=== PATIENT | female | born 1985 | race Asian ===

== ENCOUNTER 2017-07-21 14:19 | Emergency (ER) | payer BC ==
[~2017-07-21] VITALS: Ht 167.6 cm; Wt 64.5 kg
[2017-07-21 14:36] VITALS: BP 114/59; PULSE 84; RESP 14; TEMP 98.9; O2SAT 99
[2017-07-21 15:33] LABS: AUTOMATED NEUTROPHIL # 5.1 TH/MM3 (1.8-7.7); BASOPHIL # 0.1 TH/MM3 (0-0.2); BASOPHIL % 0.7 % (0.0-2.0); EOSINOPHIL # 0.1 TH/MM3 (0-0.4); HEMATOCRIT 37.2 % (35.0-46.0); HEMOGLOBIN 12.7 GM/DL (11.6-15.3); LYMPH % 26.9 % (9.0-44.0); LYMPHOCYTE # 2.1 TH/MM3 (1.0-4.8); MEAN CELL VOLUME 88.4 FL (80.0-100.0); MEAN CORPUSCULAR HEMOGLOBIN 30.3 PG (27.0-34.0); MEAN CORPUSCULAR HGB CONC 34.2 % (32.0-36.0); MEAN PLATELET VOLUME 8.1 FL (7.0-11.0); MONO % 7.3 % (0.0-8.0); MONOCYTE # 0.6 TH/MM3 (0-0.9); NEUT % 64.1 % (16.0-70.0); PLATELET COUNT 232 TH/MM3 (150-450); RED BLOOD COUNT 4.21 MIL/MM3 (4.00-5.30); RED CELL DISTRIBUTION WIDTH 13.5 % (11.6-17.2)
[2017-07-21 15:42] LABS: BICARBONATE 23.7 MEQ/L (21.0-32.0); CALCIUM 9.3 MG/DL (8.5-10.1); CREATININE 0.47 MG/DL (0.50-1.00)
[2017-07-21 15:58] LABS: BILIRUBIN, URINE NEG (NEG); BLOOD, URINE NEG (NEG); GLUCOSE,URINE NEG (NEG); KETONE, URINE 10 mg/dL (NEG); NITRITE,URINE NEG (NEG); PH, URINE 7.5 (5.0-8.5); SQUAMOUS EPITHELIAL CELL URINE 2 /hpf (0-5); URINE COLOR LIGHT-YELLOW (YELLW/STRAW); URINE LEUKOCYTE ESTERASE SMALL (NEG)
[2017-07-21 16:47] VITALS: BP 100/58; PULSE 73; RESP 18; O2SAT 100
[2017-07-21] MEDS ORDERED: PREN29TA PO (16:47)
--- NOTE | 2017-07-21 17:02 | PD ---
HPI Chief Complaint: Cardiac Complaint Time Seen by Provider: 16:41 Travel History International Travel<30 days: No Contact w/Intl Traveler<30days: No Traveled to known affect area: No History of Present Illness HPI 32-year-old female , approximately 6 weeks by dates presents to the ED for evaluation of 3 day history of chest pain, shortness of breath, dyspnea on exertion and palpitations. Gradual onset. Patient can identify no alleviating or exacerbating factors. She denies diaphoresis, nausea, vomiting, abdominal pain, vaginal bleeding, leg pain. Denies recent period of immobilization. She is a lifelong nonsmoker. No history of blood clots. She states that she called her DISASSEMBLER and was instructed to come to the ED today. [facility] Past Medical History Medical History: Denies Significant Hx Tetanus Vaccination: > 5 Years Influenza Vaccination: No ?: LMP: 06/10/2017 Past Surgical History Other Surgery: Yes (LASIK PROCEDURE ON EYES) Social History Alcohol Use: No Tobacco Use: No Substance Use: No Allergies-Medications (Allergen,Severity, Reaction): Coded Allergies: Penicillins (Verified Allergy, Unknown, 07/21/17) Reported Meds & Prescriptions Reported Meds & Active Scripts Active Reported Plus Iron 29-1 mg ( Vit-Iron Carbonyl) 29 Mg Iron-1 Mg Tab 1 Tab PO DAILY Review of Systems Except as stated in HPI: all other systems reviewed are Neg Physical Exam Narrative GENERAL: Petite, anxious female in no acute distress. SKIN: Focused skin assessment warm/dry. HEAD: Normocephalic. EYES: No scleral icterus. No injection or drainage. NECK: Supple, trachea midline. No JVD or lymphadenopathy. CARDIOVASCULAR: Regular rate and rhythm without murmurs, gallops, or rubs. CHEST: Nontender throughout without deformity or crepitus. No retractions or use of accessory muscles. Tender to palpation at the 10 o'clock position of the right breast and the 2 o'clock position of the left breast. RESPIRATORY: Breath sounds clear and equal bilaterally. No accessory muscle use. GASTROINTESTINAL: Abdomen soft, non-tender, nondistended. Active bowel sounds. MUSCULOSKELETAL: No cyanosis, or edema. Homans sign negative bilaterally. BACK: Nontender without obvious deformity. No CVA tenderness. Data Data Last Documented VS Vital Signs Date Time Temp Pulse Resp B/P (MAP) Pulse Ox O2 Delivery O2 Flow Rate FiO2 07/21/17 18:49 76 18 102/59 (73) 98 Room Air 07/21/17 14:36 98.9 Orders Orders Complete Blood Count With Diff (07/21/17 14:38) Basic Metabolic Panel (Bmp) (07/21/17 14:38) Urinalysis - C+S If Indicated (07/21/17 14:38) Thyroid Stimulating Hormone (07/21/17 14:38) Electrocardiogram (07/21/17 ) Ed Urine Pregnancytest Poc (07/21/17 17:02) Arterial Blood Gas (Abg) (07/21/17 ) D-Dimer (07/21/17 17:15) ^ Insert Iv (07/21/17 18:36) Sodium Chlorid 0.9% 500 Ml Inj (Ns 500 M (07/21/17 18:45) Ed Discharge Order (07/21/17 19:27) Labs Laboratory Tests Test 07/21/17 14:52 07/21/17 17:20 07/21/17 18:45 White Blood Count 8.0 TH/MM3 Red Blood Count 4.21 MIL/MM3 Hemoglobin 12.7 GM/DL Hematocrit 37.2 % Mean Corpuscular Volume 88.4 FL Mean Corpuscular Hemoglobin 30.3 PG Mean Corpuscular Hemoglobin Concent 34.2 % Red Cell Distribution Width 13.5 % Platelet Count 232 TH/MM3 Mean Platelet Volume 8.1 FL Neutrophils (%) (Auto) 64.1 % Lymphocytes (%) (Auto) 26.9 % Monocytes (%) (Auto) 7.3 % Eosinophils (%) (Auto) 1.0 % Basophils (%) (Auto) 0.7 % Neutrophils # (Auto) 5.1 TH/MM3 Lymphocytes # (Auto) 2.1 TH/MM3 Monocytes # (Auto) 0.6 TH/MM3 Eosinophils # (Auto) 0.1 TH/MM3 Basophils # (Auto) 0.1 TH/MM3 CBC Comment DIFF FINAL Differential Comment Urine Color LIGHT-YELLOW Urine Turbidity CLEAR Urine pH 7.5 Urine Specific Nelson 1.008 Urine Protein NEG mg/dL Urine Glucose (UA) NEG mg/dL Urine Ketones 10 mg/dL Urine Occult Blood NEG Urine Nitrite NEG Urine Bilirubin NEG Urine Urobilinogen LESS THAN 2.0 MG/DL Urine Leukocyte Esterase SMALL Urine RBC 1 /hpf Urine WBC LESS THAN 1 /hpf Urine Squamous Epithelial Cells 2 /hpf Microscopic Urinalysis Comment CULT NOT INDICATED Blood Urea Nitrogen 8 MG/DL Creatinine 0.47 MG/DL Random Glucose 90 MG/DL Calcium Level 9.3 MG/DL Sodium Level 136 MEQ/L Potassium Level 3.6 MEQ/L Chloride Level 104 MEQ/L Carbon Dioxide Level 23.7 MEQ/L Anion Gap 8 MEQ/L Estimat Glomerular Filtration Rate 152 ML/MIN Thyroid Stimulating Hormone 3rd Gen 3.250 uIU/ML Blood Gas Puncture Site RT RADIAL Blood Gas Patient Temperature 98.6 Blood Gas HCO3 22 mmol/L Blood Gas Base Excess -1.0 mmol/L Blood Gas Oxygen Saturation 97 % Arterial Blood pH 7.45 Arterial Blood Partial Pressure CO2 32 mmHg Arterial Blood Partial Pressure O2 106 mmHG Arterial Blood Oxygen Content 16.3 Vol % Arterial Blood Carboxyhemoglobin 0.8 % Arterial Blood Methemoglobin 0.5 % Blood Gas Hemoglobin 11.8 G/DL Oxygen Delivery Device ROOM AIR Blood Gas Inspired Oxygen 21 % D-Dimer Quantitative (PE/DVT) 0.43 MG/L [facility] Medical Decision Making Medical Screen Exam Complete: Yes Emergency Medical Condition: Yes Differential Diagnosis Anxiety versus musculoskeletal pain versus PE versus other Narrative Course 32-year-old female , approximately 6 weeks by dates presents to the ED for evaluation of 3 day history of chest pain, shortness of breath, dyspnea on exertion and palpitations. Denies recent period of immobilization. She is a lifelong nonsmoker. No history of blood clots. She states that she called her DISASSEMBLER and was instructed to come to the ED today. Pulse 84, pulse ox 99% on room air on presentation. Physical exam reveals an anxious-appearing female in no acute distress. She does have some tenderness to palpation on the outer upper quadrant of bilateral breast but the exams otherwise unremarkable. EKG rate 75, sinus rhythm. TX interval 138, QRS 97, QTC 439 ms. Normal axis. No acute ST changes. Reviewed by Dr. Bauer. ABG: PH 7.45. PCO2 32.4. Bicarbonate 22.4. D-dimer: 0.43. UA: No bacteria. No culture indicated. 07/21/17 14:52 Calcium Level 9.3 Given the negative d-dimer, normal ABG I reassured her that this is not a PE. Could be breast changes related to early coupled with anxiety. Patient's instructed to return to normal, gentle activity as tolerated, follow- up with her DISASSEMBLER. She stable and discharged home. Diagnosis Primary Impression: Heart palpitations Additional Impression: Musculoskeletal chest pain Referrals: Catalog Librarian Patient Instructions: Chest Wall Pain (ED), General Instructions, Heart Palpitations (ED) Additional Instructions: Rest, hydrate. Resume normal, gentle activities as tolerated. Follow-up with your supervisor locomotive this week. Return to the ED for worsening symptoms or any urgent or emergent medical condition. Disposition: 01 DISCHARGE HOME Condition: Stable Pam Bridges Jul 21, 2017 17:02
[2017-07-21] MEDS ORDERED: SODIUM CHLORID 0.9% 500 ML INJ 500 ML IV ONE (18:45)
[2017-07-21 18:49] VITALS: BP 102/59; PULSE 76; RESP 18; O2SAT 98
--- NOTE | 2017-07-22 22:47 | EKG ---
Date Performed: 07/21/2017 Time Performed: 14:48:34 PTAGE: 32 years EKG: Sinus rhythm POSSIBLE RIGHT VENTRICULAR CONDUCTION DELAY NONSPECIFIC T-WAVE ABNORMALITY BORDERLINE ECG NO PREVIOUS TRACING DOCTOR: Dejah Currie Interpretating Date/Time 07/22/2017 22:46:11
== END 2017-07-21 19:52 | disposition home or self-care (01) ==
LOC: NEPC 14:19
DX: O26.891 Other specified pregnancy related conditions, first trimester (principal); R06.02 Shortness of breath; R00.2 Palpitations; Z3A.01 Less than 8 weeks gestation of pregnancy
CPT/HCPCS: 36600; 80048; 81001; 82805; 84443; 84703; 85025; 85379; 93005; 99284; J7040

== ENCOUNTER → 2017-09-10 | Outpatient (CLI) | payer BC ==
[~2017-09-10] MED LIST: PREN29TA PO
== END ==
LOC: HPND 11:23
PROVIDERS: ATTEND Obstetrics & Gynecology
DX: Z36.82 Encounter for antenatal screening for nuchal translucency (principal)
CPT/HCPCS: 36415; 76813

== ENCOUNTER → 2017-10-08 | Outpatient (CLI) | payer BC | LOC: HPND 12:10 | PROVIDERS: ATTEND Obstetrics & Gynecology | DX: O28.1 Abnormal biochemical finding on antenatal screening of mother (principal) | CPT/HCPCS: 76811 ==

== ENCOUNTER → 2017-11-14 | Outpatient (CLI) | payer BC | LOC: HPND 09:09 | PROVIDERS: ATTEND Obstetrics & Gynecology | DX: O35.8XX0 Maternal care for other (suspected) fetal abnormality and damage, not applicable or unspecified (principal); O43.192 Other malformation of placenta, second trimester | CPT/HCPCS: 76816 ==

== ENCOUNTER 2018-03-10 05:20 | Inpatient (IN) ==
--- NOTE | 2018-03-09 21:02 | MH ---
cc: Sacha Paris MD DATE OF ADMISSION: 03/10/2018 ADMITTING DIAGNOSIS: 39 weeks, small for gestational age. She is admitted today for primary for term , small for gestational age and patient's desire for delivery. PAST SURGICAL HISTORY: None. MEDICATIONS: Vitamins. ALLERGIES: PENICILLIN. TRANSFUSIONS: None. SOCIAL HISTORY: , professor [employer]. Alcohol, tobacco and drugs are none. PHYSICAL EXAMINATION: GENERAL: Well-nourished, well-developed, female. VITAL SIGNS: Stable. HEENT: Normal. CHEST: Clear. HEART: Regular rate. BREASTS: Symmetrical. ABDOMEN: Benign. DFW is 28 to 3000 grams. Cervix is closed. ASSESSMENT: As above. PLAN: She is now admitted for primary . While in the office, the risks and benefits and complications including infection, injury, bleeding. Awaiting labor, induction, explained and accepted. MD GIOVANY Weller/diego/ , 07:38 PM , 07:42 PM MTDD
[2018-03-10] MEDS ORDERED: Citric Acid/Sodium Citrate Liq 30 ML UDC PO SCH (06:30)
[2018-03-10 06:33] LABS: Baso # (Auto) 0.1 th/mm3 (0.0-0.2); Baso % (Auto) 0.6 % (0.0-2.0); Eos # (Auto) 0.1 th/mm3 (0.0-0.4); Hematocrit 37.7 % (35.0-46.0); Hemoglobin 12.6 gm/dL (11.6-15.3); Lymph # (Auto) 1.6 th/mm3 (1.0-4.8); Lymph % (Auto) 13.7 % (9.0-44.0); Mean Corpuscular HGB Conc 33.3 % (32.0-36.0); Mean Corpuscular Hemoglobin 31.5 pg (27.0-34.0); Mean Corpuscular Volume 94.5 fL (80.0-100.0); Mean Platelet Volume 9.2 fL (7.0-11.0); Mono % (Auto) 8.9 % (0.0-8.0); Neut # (Auto) 8.7 th/mm3 (1.8-7.7); Neut % (Auto) 75.8 % (16.0-70.0); Platelet Count 287 th/mm3 (150-450); Red Blood Count 3.99 mil/mm3 (4.00-5.30); Red Cell Distribution Width 14.6 % (11.6-17.2); White Blood Count 11.5 th/mm3 (4.0-11.0)
[2018-03-10] MEDS ORDERED: Clindamycin 600 mg/NS Premix 600 MG/50 ML PIGGYBACK IV.SIG ONE (06:45)
[2018-03-10 06:54] LABS: Amphetamine Screen,Urine Neg (Neg); Barbiturate Screen,Urine Neg (Neg); Cannabinoid Screen,Urine Neg (Neg); Cocaine Screen,Urine Neg (Neg)
[2018-03-10 07:01] LABS: Opiate Screen,Urine Neg (Neg)
[2018-03-10] MEDS ORDERED: Clindamycin Inj 600 MG/4 ML Vial ONE (07:04)
[2018-03-10] MEDS ORDERED: Morphine Sulfate PF Inj 5 MG/10 ML Ampul ONE (07:04)
[2018-03-10 07:07] LABS: Bacteria,Urine Moderate /hpf; Bilirubin,Urine Negative (Negative); Clarity,Urine Hazy (Clear); Color,Urine Yellow (Yellw/Straw); Glucose,Urine (UA) Negative (Negative); Leukocyte Esterase,Urine Moderate (Negative); Mucus,Urine Few /lpf (Occasional); Nitrite,Urine Negative (Negative); Specific Gravity,Urine 1.017 (1.002-1.035); Squamous Epithelial Cell,Urine 5 /hpf (0-5)
[2018-03-10] MEDS ORDERED: Oxytocin 30 Units/500ml Premix 30 UNITS/500 ML BAG IV.SIG ONE (07:24)
[2018-03-10] MEDS ORDERED: Simethicone 80 MG Chew Tablet PO PRN (07:24)
[2018-03-10] MEDS ORDERED: Senna/Docusate Sodium 8.6/50 MG Tablet PO PRN (07:24)
[2018-03-10] MEDS ORDERED: Phenylephrine/NS 1000 MCG/10ML Syringe IV.PUSH ONE (07:29)
[2018-03-10] MEDS ORDERED: Ketorolac Inj 30 MG/ML (IVP) Vial IV.PUSH ONE (07:29)
[2018-03-10] MEDS ORDERED: Ketorolac Inj 30 MG/ML (IVP) Vial IM ONE (07:29)
[2018-03-10] MEDS ORDERED: Ketorolac Inj 30 MG/ML (IVP) Vial IV.PUSH PRN (10:02)
--- NOTE | 2018-03-10 10:35 | MP ---
cc: Sacha Paris MD DATE OF OPERATION: 03/10/2018 PREOPERATIVE DIAGNOSES: 1. Term . 2. Small for gestational age. POSTOPERATIVE DIAGNOSES: 1. Term . 2. Small for gestational age. 3. Delivery. PROCEDURE PERFORMED: Primary low transverse section. ANESTHESIA: Spinal. SURGEON: Sacha Paris MD. CAN FILLING ROOM SWEEPER: BRY Light. ESTIMATED BLOOD LOSS: 600 mL. FLUIDS: 1.5 L crystalloid. OBJECTIVE FINDINGS: Following induction of adequate spinal anesthesia, the patient was prepped and draped supine on the operating table with left lateral tilt position in usual sterile fashion with the bladder being drained via Esparza catheterization. The abdomen was opened through a Pfannenstiel incision using the knife to cut down through the skin to the fascia. The fascia opened transversely, stripped from the muscles, rectus muscle split in the midline, and the peritoneum opened sharply without incident. The bladder flap was taken down sharply and retracted inferiorly. Lower uterine segment incised transversely with a knife and extended with blunt dissection. Membranes ruptured for clear fluid. Baby in LOT position. The vacuum extractor was applied and used to elevate the head through the abdominal wound. Mouth was suctioned, cord clamped and cut. The baby passed to the team. Cord blood obtained for preservation, cord blood for typing. Placenta manually delivered. Uterine cavity was wiped clean with laps and uterus exteriorized. Uterine wound was closed in 2 layers running suture, first with a running locking stitch of #0 Vicryl, second with a running imbricating stitch of #0 Vicryl. The posterior inspection of tubes were normal. Uterus placed back in the cavity. Irrigation performed. Bleeding on suture line controlled with 2-0 chromic sutures. Bladder flap was closed with running stitch of 3-0 Vicryl. All laps and retractors were removed. Counts were correct. The anterior peritoneum closed with running 2-0 Vicryl, the fascia with a running locking stitch of #0 Vicryl corner to midline and tied, subcutaneous with running 3-0 Vicryl, the skin with a running subcuticular 3-0 Monocryl. Dermabond applied. All counts were correct. The patient was awakened and taken to the recovery room in good condition. MD Suzie Weller , 08:55 AM , 09:00 AM MTDKalli
[2018-03-10] MEDS ORDERED: Oxytocin 30 Units/500ml Premix 30 UNITS/500 ML BAG IV.SIG PRN (12:24)
[2018-03-10] MEDS ORDERED: Naloxone Inj 0.4 MG/ML Vial IV.PUSH PRN (12:30)
[2018-03-10] MEDS ORDERED: Zolpidem Tartrate 5 MG Tablet PO PRN (21:00)
[2018-03-11 05:55] LABS: Baso # (Auto) 0.1 th/mm3 (0.0-0.2); Baso % (Auto) 0.4 % (0.0-2.0); Eos # (Auto) 0.1 th/mm3 (0.0-0.4); Eos % (Auto) 0.6 % (0.0-4.0); Hematocrit 26.5 % (35.0-46.0); Hemoglobin 8.9 gm/dL (11.6-15.3); Lymph # (Auto) 1.9 th/mm3 (1.0-4.8); Mean Corpuscular HGB Conc 33.6 % (32.0-36.0); Mean Corpuscular Hemoglobin 31.8 pg (27.0-34.0); Mean Corpuscular Volume 94.7 fL (80.0-100.0); Mean Platelet Volume 8.5 fL (7.0-11.0); Mono # (Auto) 1.3 th/mm3 (0.0-0.9); Mono % (Auto) 8.9 % (0.0-8.0); Neut # (Auto) 11.2 th/mm3 (1.8-7.7); Neut % (Auto) 77.1 % (16.0-70.0); Platelet Count 189 th/mm3 (150-450); Red Blood Count 2.79 mil/mm3 (4.00-5.30); Red Cell Distribution Width 14.9 % (11.6-17.2); White Blood Count 14.5 th/mm3 (4.0-11.0)
[2018-03-11] MEDS ORDERED: Diphtheria/Tetanus/Pertussis Vaccine Inj 0.5 ML Syringe IM ONE (16:00)
[2018-03-11] MEDS ORDERED: Measles/Mumps/Rubella Vaccine Inj 0.5 ML Vial SQ ONE (16:00)
[2018-03-12 22:12] VITALS: TEMP 98.1
[2018-03-13 07:20] VITALS: BP 112/69; PULSE 89; RESP 20
== END 2018-03-13 14:05 | disposition home or self-care (01) ==
LOC: H2E 05:20 → H1EA 09:55
PROVIDERS: ADMIT Obstetrics & Gynecology; ATTEND Obstetrics & Gynecology